=== PATIENT | male | born 1985 | race Hispanic/Latino ===

== ENCOUNTER 2024-09-28 15:13 | Emergency (ER) | payer OTHER ==
[~2024-09-28] VITALS: Ht 172.7 cm; Wt 90.7 kg
[2024-09-28 15:18] VITALS: PULSE 94; RESP 18; TEMP 98.6
[2024-09-28] MEDS ORDERED: TYLENOL325 MG PO (16:10)
[2024-09-28] MEDS ORDERED: IBUPROFEN200 MG PO (16:10)
[2024-09-28] MEDS ORDERED: BACITRACIN ZINC 0.9GM TP ONE (16:13)
[2024-09-28] MEDS: BACITRACIN ZINC 0.9GM TP ONE (17:09)
[2024-09-28 17:11] VITALS: BP 137/84; PULSE 71; RESP 18; TEMP 98.3; O2SAT 100
== END 2024-09-28 17:10 | disposition home or self-care (01) ==
LOC: FSED 15:15
DX: S01.112A Laceration without foreign body of left eyelid and periocular area, initial encounter (principal); Y04.0XXA Assault by unarmed brawl or fight, initial encounter; Y92.89 Other specified places as the place of occurrence of the external cause
CPT/HCPCS: 70450; 99284

== ENCOUNTER 2024-10-10 09:33 | Emergency (ER) | payer OTHER ==
[~2024-10-10] VITALS: Ht 175.3 cm; Wt 90.7 kg
[~2024-10-10 09:33] MED LIST: IBUPROFEN200 MG PO; TYLENOL325 MG PO
[2024-10-10 09:38] VITALS: PULSE 71; RESP 16; TEMP 99; O2SAT 98
== END 2024-10-10 09:55 | disposition home or self-care (01) ==
LOC: FSED 09:40
DX: Z48.02 Encounter for removal of sutures (principal)
CPT/HCPCS: 99282; S0630